=== PATIENT | female | born 1960 | race Caucasian/White ===

== ENCOUNTER 2017-03-18 19:21 | Observation (INO) ==
[2017-03-18] MEDS ORDERED: NS 1,000 ML IV PRN (19:50)
[2017-03-18] MEDS ORDERED: ANTIVERT PO ONE ×2 (19:50→21:49)
[2017-03-18] MEDS ORDERED: ZOFRAN IV ONE (19:50)
[2017-03-18 20:04] LABS: MANUAL DIFF NEEDED? NO
--- NOTE | 2017-03-18 20:06 | EKG Report ---
Test Performed on : 03/18/2017 7:47:44 PM Test Reason : CP Blood Pressure : / mmHG Vent. Rate : 070 BPM Atrial Rate : 070 BPM P-R Int : 148 ms QRS Dur : 078 ms QT Int : 398 ms P-R-T Axes : 036 035 011 degrees QTc Int : 429 ms Normal sinus rhythm. Low voltage QRS Borderline ECG When compared with ECG of 18-MAR-2017 19:47, (Unconfirmed) No significant change was found Unconfirmed Result
[2017-03-18 20:11] LABS: BASO% 0.3 % (0.0-0.8); EOS# 0.23 X1000 (0.0-0.7); EOS% 3.5 % (0.0-10.0); HEMOGLOBIN 13.2 g/dL (12.0-16.0); IMM GRAN# 0.03 X1000 (0.0-0.04); IMM GRAN% 0.5 % (0.0-0.5); LYMPH# 2.58 X1000 (1.2-3.4); MCH 29.7 PG (27-31); MCHC 33.8 g/dL (33-37); MCV 87.8 FL (81-99); MONO# 0.67 X1000 (0.11-0.59); MONO% 10.1 % (1.7-9.3); MPV 9.8 FL (7.4-10.4); NEUT% 46.6 % (42.2-75.2); PLT 265 X1000 (130-400); RBC 4.44 XMIL (4.2-5.4)
[2017-03-18 20:24] LABS: AGAP 11; ALBUMIN 4.2 g/dL (3.5-5.0); ALKALINE PHOSPHATASE 67 U/L (32-104); BUN 14 mg/dL (8-22); CALCIUM 8.8 mg/dL (8.8-10.2); CHLORIDE 104 mmol/L (98-107); COSMO 276; GOT 17 U/L (10-30); GPT 27 U/L (10-36); POTASSIUM 3.8 mmol/L (3.5-5.1); SODIUM 138 mmol/L (136-145); TCO2 23 mmol/L (25-35)
[2017-03-18 20:32] LABS: INR 1.07 (0.86-1.15); PROTIME 14.2 Seconds (12.1-15.5)
[2017-03-18 20:33] LABS: PTT PL 30.3 Seconds (22.6-43.9)
--- NOTE | 2017-03-18 20:51 | Diag Imaging Result Doc PS360 ---
EXAM: HEAD W/O CONTRAST - 03/18/2017 HISTORY: dizzy TECHNIQUE: Dose reduction protocol COMPARISON: None. FINDINGS: There is no evidence of hemorrhage, mass effect, midline shift, or hydrocephalus. There is no evidence of infarct, although acute infarcts may not be immediately visible. Visualized portions of paranasal sinuses and mastoid air cells appear clear except for a small mucous retention cyst in the left sphenoid sinus.. IMPRESSION: No visible acute process. No hemorrhage or mass effect. Electronically signed by Ty Lara 03/18/2017 8:49 PM
[2017-03-18] MEDS ORDERED: ATIVAN IV ONE (20:56)
--- NOTE | 2017-03-18 20:56 | Diag Imaging Result Doc PS360 ---
EXAM: CHEST-1 VIEW - 03/18/2017 HISTORY: dizzy TECHNIQUE: One view chest COMPARISON: 10/07/2015 FINDINGS: Heart size is normal. There is stable mild tortuosity of the descending aorta. 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 The lungs otherwise appear clear. There is no pleural effusion or pneumothorax identified. IMPRESSION: No evidence of acute disease. Electronically signed by Ty Lara 03/18/2017 8:54 PM
[2017-03-18 21:11] LABS: UR AMPHETAMINES QUAL NONE DETECTED (NONE DETECT); UR BARBITUATES QUAL NONE DETECTED (NONE DETECT); UR BENZODIAZEPIN QUAL NONE DETECTED (NONE DETECT); UR CANNABINOIDS QUAL NONE DETECTED (NONE DETECT); UR COCAINE QUAL NONE DETECTED (NONE DETECT); UR MDMA QUAL NONE DETECTED (NONE DETECT); UR METHADONE QUAL NONE DETECTED (NONE DETECT); UR METHAMPHETAMINE QUAL NONE DETECTED (NONE DETECT); UR OPIATES QUAL NONE DETECTED (NONE DETECT); UR OXYCODONE QUAL NONE DETECTED (NONE DETECT); UR PCP QUAL NONE DETECTED (NONE DETECT); UR TCA QUAL NONE DETECTED (NONE DETECT)
[2017-03-18 21:19] LABS: BILIRUBIN URINE NEGATIVE (NEGATIVE); BLOOD URINE NEGATIVE (NEGATIVE); CLARITY CLEAR (CLEAR); COLOR YELLOW; GLUCOSE URINE NEGATIVE (NEGATIVE); LEUKOCYTES URINE TRACE (NEGATIVE); NITRITE URINE NEGATIVE (NEGATIVE); PH URINE 6.5; PROTEIN URINE NEGATIVE (NEGATIVE); SP GRAVITY URINE 1.015; URINE SOURCE CLEAN CATCH; UROBILINOGEN URINE NORMAL
[2017-03-18 21:20] LABS: URINE CULTURE PL NEEDED? YES; URINE EPITHELIAL CELLS <10 /HPF (<10); URINE RBC <10 /HPF (<10); URINE WBC <10 /HPF (<10)
[2017-03-18] MEDS ORDERED: NS 1,000 ML IV ONE (22:35)
[2017-03-18] MEDS ORDERED: ZOFRAN IV PRN (22:35)
--- NOTE | 2017-03-19 02:11 | PROVIDER DOCUMENTATION ---
This chart was entered by Jc Greenwood Scribe, acting as scribe for Stefan Calderon PA. HPI-General Adult - General Chief Complaint: Dizziness Stated Complaint: DIZZINESS Time Seen by Provider: 03/18/17 19:41 Source: patient, family Allergies/Adverse Reactions: Patient Allergies Allergy/AdvReac Type Severity Reaction Status Date / Time No Known Allergies Allergy Verified 03/18/17 19:31 Home Medications: Home Medication List Medication Instructions Recorded Confirmed Last Taken Type Zolpidem [Ambien] 10 mg PO QHS 05/16/14 03/18/17 1 Day Ago History - History of Present Illness -Gen Adult Nature of Presenting Problems: CC: "the room is spinning". complains of dizziness, n/v that started this afternoon around 1800. No headache, cp, fever, abd pain, recent illness. Location of Pain/Injury: reports: none Onset/Duration: reports: 4-6 hours ago Timing: reports: still present Modifying Factors: improves with: movement (movement of head) Associated Symptoms: reports: dizziness, nausea, shortness of breath, vomiting Similar Symptoms Previously?: No Review of Systems - Adult - REVIEW OF SYSTEMS - ADULT Constitutional: denies: chills, fever Cardiovascular: denies: chest pain, palpitations Respiratory: reports: shortness of breath. denies: cough Gastrointestinal: reports: nausea, vomiting. denies: abdominal pain, diarrhea Musculoskeletal: denies: back pain, neck pain All Other Systems: Reviewed and Negative Past History - Adult - PAST MEDICAL HISTORY-ADULT Review of Records: reports: Old Records Reviewed, Nursing Assessment Review, Medications Reviewed, Social history reviewed & non-contributory. Major Childhood Illnesses: reports: denies history Cardiovascular: reports: denies history Respiratory: reports: denies history Gastrointestinal: reports: diverticulosis, hemorrhoids Obstetrical/Gynecological: reports: denies history Genitourinary: reports: denies history Musculoskeletal: reports: denies history, arthritis Neurological: reports: denies history Psychiatric: reports: denies history Endocrine/Immune: reports: denies history Other Conditions: reports: denies history - PRIOR SURGERIES/PROCEDURES Surgical/Procedure History: reports: reviewed, not pertinent - IMMUNIZATION STATUS Childhood Immunizations: See Nurse Assessment Flu Vaccine: See Nurse Assessment - FAMILY HISTORY Family History: reviewed, not pertinent Physical Exam-General - PHYSICAL EXAM-ADULT Initial Vital Signs Reviewed: Yes - CONSTITUTIONAL General Appearance: appears well, alert, no apparent distress - RESPIRATORY Respiratory: chest non-tender, lungs clear, normal breath sounds - CARDIOVASCULAR Cardiovascular: normal peripheral pulses, regular rate, rhythm - GASTROINTESTINAL (ABDOMEN) Abdominal Exam: normal bowel sounds, non tender, soft - MUSCULOSKELETAL Extremity: normal range of motion, non-tender, normal gait - SKIN Integumentary: normal color, normal turgor, warm/dry - NEUROLOGIC Neurologic: cabin man II-XII nml as tested (good finger to nose, heel to potts, Zachery), grossly normal, no motor/sensory deficits, abnormal cerebellar tests (unsteady gait). negative: focal weakness - PSYCHIATRIC Psych/Mental Status: normal mood/affect, oriented x 3 Progress - PLAN OF CARE/RESULTS Progress/Plan/Lab Results: Vital Signs - 8 hr 03/18/17 19:28 03/18/17 19:46 Temperature 98.3 F Pulse Rate 75 74 Respiratory Rate 18 18 Blood Pressure 133/081 152/90 O2 Sat by Pulse Oximetry 98 98 Laboratory Results - last 24 hr 03/18/17 19:42 POC Glucose 95 Orders Category Date Time Status EKG [EKG] Stat Ther 03/18/17 19:39 Ordered Result Diagrams: 03/18/17 19:50 03/18/17 19:50 - EKG 1 Time of EKG reading by physician:: 19:47 EKG Read and Signed by:: Johann Leroy EKG Interpretation (*Must complete 3 of following elements*): Abnormal ( borderline) Rate: 70 Rhythm: NSR Celestine: normal QRS: other (low voltage QRS) Comments: borderline EKG - CONSULTS/PCP/HOSPITALIST Notification #1 *Consult/PCP/Hospitalist*: deion Time Discussed: 20:00 Consult Disposition: Admit Departure - Departure Date of Disposition Decision: 03/18/17 Time of Disposition Decision: 22:33 DIAGNOSIS: Dizziness, Nausea and vomiting Disposition: ADMITTED INPATIENT 09 Certified Medical Emergency: Emergent Condition: Stable - Critical Care Note This patient required my direct & personal management of CC.: No Attestation - Physician/ DEVANG Attestation Patient care was provided by Advanced Practice Provider:: Yes Advanced Practice Provider:: Stefan Calderon Advanced Practice Provider documentation review:: The Mid-level provider documentation, treatment plan and medical decision making was reviewed by the physician who agrees with all treatment and medical decision making by the MLP. The physician spent face to face time with patient:: Yes Advanced Practice Provider documentation review:: The physician spent face to face time with this patient and agrees with all MLP documentation, treatment, and medical decision making by the MLP. See provider notes for further information. This chart was documented by the indicated scribe, (Jc Greenwood Scribe) and accurately reflects the services I performed and decisions made by , Stefan Calderon PA, as attested by the provider's signature.
--- NOTE | 2017-03-19 10:40 | Diag Imaging Result Doc PS360 ---
EXAM: MRI BRAIN W W/O CONTRAST HISTORY: dizziness TECHNIQUE: MRI of the brain with and without gadolinium: T1 axial and sagittal, DWI, T2, and flair axial, gradient echo coronal, FSPGR 3-D postgadolinium axial and coronal reconstruction. COMMENT: There is no evidence of mass effect, bleed, abnormal extra-axial fluid collection, hydrocephalus or abnormal contrast enhancement. There is no evidence of restricted diffusion. There are no previous studies available for comparison. No CP angle masses are present. The visualized paranasal sinuses are unremarkable. IMPRESSION: No evidence of acute disease. Electronically signed by Josse Guzman 03/19/2017 10:38 AM
[2017-03-19 11:39] VITALS: BP 127/65
--- NOTE | 2017-03-19 13:45 | HISTORY AND PHYSICAL ---
PRIMARY CARE PHYSICIAN: Yari Herzog MD CHIEF COMPLAINT: Dizziness. HISTORY OF PRESENT ILLNESS: This is a 56-year-old female with no prior history who presented to the emergency room complaining of dizziness that started about an hour and a half before presenting to the emergency room. She stated that the room was spinning around her. Turning her head increased the symptoms. She did have some nausea during this time as well as vomiting. She denied any change in vision or any other deficits. She denied any recent illnesses or injuries. CT of the head was performed which revealed no visible acute process, no hemorrhage or mass effect. She is admitted for further evaluation and treatment. PAST MEDICAL HISTORY: Denies. PAST SURGICAL HISTORY: Hysterectomy. SOCIAL HISTORY: Denies alcohol, tobacco, or illicit drug use. ALLERGIES: No known drug allergies. HOME MEDICATIONS: Ambien p.r.n. REVIEW OF SYSTEMS: A 14 point review of systems is discussed with patient with pertinent positives being stated in the HPI. She denied syncope, any fall or injuries. Any chest pain, palpitations, shortness of breath, PND, orthopnea, diarrhea, constipation, black or bloody vomitus, black or bloody stools, hematuria, dysuria. PHYSICAL EXAMINATION: GENERAL: This is a 56-year-old female who is walking in the room with no distress. VITAL SIGNS: Blood pressure is 96/47 with a heart rate of 76, respirations are 17, temperature is 98.6 degrees oral with room air saturations 98%. HEENT: Head is normocephalic, atraumatic. Pupils are 3 mm, equal, round, react to light. EOMs intact. Sclerae anicteric. Mucous membranes are moist. There is no nystagmus. NECK: Supple. Trachea midline. CARDIOVASCULAR: Regular rate and rhythm. S1, S2 appreciated. PULMONARY: Breath sounds are clear with no increased work of breathing noted. GASTROINTESTINAL: Abdomen is soft, nontender, nondistended. Bowel sounds in all 4 quadrants. BACK: No CVAT. No spine tenderness. MUSCULOSKELETAL: Good range of motion of joints. EXTREMITIES: No clubbing, cyanosis, or edema. Calves nontender. Pulses are palpable x4. NEUROLOGIC: She is alert orient x3. Cranial nerves 2-12 grossly intact. DIAGNOSTICS/IMAGING: CT of the head revealed no acute process. WBC is 6.6 with a hemoglobin 13.2, hematocrit 39 and platelets of 265,000. Sodium is 138, potassium 3.8, BUN 14, creatinine 0.6 with a glucose of 104. Urinalysis is essentially negative. Urine drug screen is negative. ASSESSMENT: Dizziness, most likely vertigo. She states the symptoms have resolved. She has no neurologic deficits. We will obtain an MRI with and without and we will continue to follow. Dictated by GAVIOTA Mcmahon for Meño Urbina MD cc: GAVIOTA Mcmahon MD
--- NOTE | 2017-03-20 12:07 | DISCHARGE SUMMARY ---
ADMISSION DATE: 03/18/2017 DISCHARGE DATE: 03/19/2017 DIAGNOSES: 1. Vertigo resolved. 2. Nausea and vomiting resolved. DIAGNOSTICS: CT of the head revealed no visible acute processes. No hemorrhage or mass effect. The MRI of the brain revealed no evidence of acute disease. HOSPITAL COURSE: Ms. Solis presented to the emergency room after having a few hours of nausea, vomiting and dizziness. She said that she felt the room was spinning around her and when she moves her head it did exacerbate her feelings. If she laid real still with her eyes closed it did get somewhat better. She also had some accompanying nausea and vomiting. In the emergency room she was given IV fluids as well as Antivert x2 and Ativan IV. Symptoms did resolve and they have not returned. She was admitted. Neuro checks have been stable. She has been up walking in the ben[place]ides with no difficulty walking, no dizziness and eating without any nausea or vomiting. PHYSICAL EXAMINATION: Cardiovascular: Regular rate and rhythm. S1, S2 appreciated. Pulmonary: Breath sounds are clear. No increased work of breathing noted. Gastrointestinal: Abdomen is soft, nontender, nondistended. Bowel sounds in all 4 quadrants. Neurologic: She is alert and oriented x3. Her cranial nerves 2-12 grossly intact. Discharge Vital Signs: Blood pressure is 127/65 with a heart rate of 72, respirations are 19, temperature 97.4 degrees oral with room air saturations 98-99%. DISCHARGE ACTIVITY: As tolerated. DISCHARGE MEDICATIONS: Ambien 10 mg p.o. at bedtime p.r.n. and Antivert 12.5 p.o. q.8 hours p.r.n. dizziness. FOLLOWUP: She is to follow up with Dr. Herzog in the next 1-2 weeks sooner if needed. She is being discharged home in stable condition with family members. TIME SPENT: This is a greater than 30 minute discharge. Dictated by GAVIOTA Mcmahon for Meño Urbina MD cc: GAVIOTA Mcmahon MD
== END 2017-03-19 16:05 | disposition home or self-care (01) ==
LOC: P.ED 19:21 → P.MEDSURG 19:21
PROVIDERS: ATTEND Family Medicine